=== PATIENT | male | born 1960 | race Caucasian/White ===

== ENCOUNTER 2021-11-02 10:13 | Emergency (ER) | payer BC ==
[2021-11-02 11:55] LABS: CORONAVIRUS COVID-19 NAA POSITIVE (NEGATIVE)
== END 2021-11-02 12:05 | disposition home or self-care (01) ==
LOC: JP.ED 10:13
DX: U07.1 COVID-19 (principal); J40 Bronchitis, not specified as acute or chronic; Z88.0 Allergy status to penicillin; Z79.82 Long term (current) use of aspirin; Z79.899 Other long term (current) drug therapy
CPT/HCPCS: 0241U; 36415; 71046; 80048; 85025; 99283